=== PATIENT | female | born 1985 | race Caucasian/White ===

== ENCOUNTER → 2016-09-14 09:59 | Emergency (ER) | payer OTHER ==
[2016-09-14 10:28] VITALS: BP 117/79
--- NOTE | 2016-09-14 10:47 | UC ---
Respiratory Complaint HPI - HPI Summary HPI Summary: 2-3 DAYS OF COUGH, CONGESTION, NAUSEA, ST, BODY ACHES, ORR, LOW GRADE FEVER TMAX 100.4. HAS FATIGUE. NO FLU SHOT THIS SEASON. - History of Current Complaint Chief Complaint: UCGeneralIllness Stated Complaint: FEVER Time Seen by Provider: 09/14/16 10:31 Hx Obtained From: Patient Hx Last Menstrual Period: 09/07/16 Onset/Duration: Gradual Onset, Lasting Days, Still Present Timing: Constant Severity Initially: Moderate Severity Currently: Moderate Pain Intensity: 8 Pain Scale Used: 0-10 Numeric Character: Cough: Productive Aggravating Factors: Nothing Alleviating Factors: Nothing Associated Signs And Symptoms: Positive: Fever, Chills, URI, Nasal Congestion. Negative: Dyspnea, Wheezing, Hemoptysis, Dizziness - Allergies/Home Medications Allergies/Adverse Reactions: Allergies Allergy/AdvReac Type Severity Reaction Status Date / Time Gluten Meal Allergy GI Upset Verified 06/23/16 07:27 Iodine Allergy Swelling Verified 06/23/16 07:27 Of Face,Lips,& Throat Papaya Enzyme Allergy Swelling Verified 09/14/16 10:24 Shellfish Allergy Allergy Difficulty Verified 06/23/16 07:27 Breathing Home Medications: Home Medications Ibuprofen TAB* [Advil TAB*] 2 tab PO PRN 09/14/16 [History] PMH/Surg Hx/FS Hx/Imm Hx Endocrine History Of: Denies: Diabetes, Thyroid Disease, Hyperthyroidism, Hypothyroidism, Dyslipidemia Cardiovascular History Of: Denies: Cardiac Disorders, Hypertension, Pacemaker/ICD, Myocardial Infarction , Congestive Heart Failure, Atrial Fibrillation, Deep Vein Thrombosis, Bleeding Disorders Respiratory History Of: Reports: Asthma - As a child. Denies: COPD, Bronchitis, Pneumonia, Pulmonary Embolism GI/ History Of: Reports: Gastroesophageal Reflux - She states that this is more of a recent problem. Rx:OTC. Denies: Ulcer, Gastrointestinal Bleed, Gall Bladder Disease, Kidney Stones, Diverticulitis, Renal Disease, Urosepsis Neurological History Of: Reports: Migraine - Ocular migraines Denies: TIA, CVA, Dementia, Seizures Psychological History Of: Denies: Anxiety, Depression, Bipolar Disorder, Schizophrenia, Post Traumatic Stress Disorder Cancer History Of: Denies: Lung Cancer, Colorectal Cancer, Breast Cancer, Prostate Cancer, Cervical Cancer Other History Of: Negative For: HIV, Hepatitis B, Hepatitis C - Surgical History Surgical History: Yes Surgery Procedure, Year, and Place: laser eye surgery. wisdom teeth. R knee arthroscopy. l knee arthroscopy-2016 - Family History Known Family History: Positive: Hypertension, Diabetes, Other - severe, chronic migraines: mother Negative: Cardiac Disease - Social History Alcohol Use: Occasionally Substance Use Type: None Smoking Status (MU): Never Smoked Tobacco - Immunization History Most Recent Influenza Vaccination: season Review of Systems Constitutional: Fever, Chills, Fatigue ENT: Sore Throat, Nasal Discharge Respiratory: Cough Cardiovascular: Negative Gastrointestinal: Other - NAUSEA Musculoskeletal: Myalgia Neurological: Headache All Other Systems Reviewed And Are Negative: Yes Physical Exam Triage Information Reviewed: Yes Appearance: No Pain Distress, Well-Nourished, Ill-Appearing - APPEARS MILDLY ILL AND FATIGUED Vital Signs: Initial Vital Signs Temp 97.6 F 09/14/16 10:19 Pulse 81 09/14/16 10:19 Resp 18 09/14/16 10:19 BP 117/79 09/14/16 10:19 Pulse Ox 99 09/14/16 10:19 Vital Signs Reviewed: Yes Eyes: Positive: Conjunctiva Clear ENT: Positive: Hearing grossly normal, Pharynx normal, TMs normal. Negative: Tonsillar swelling, Tonsillar exudate Neck: Positive: Supple, Nontender, No Lymphadenopathy Respiratory Exam: Normal Cardiovascular Exam: Normal Abdomen Description: Positive: Soft Musculoskeletal: Positive: No Edema Neurological: Positive: Alert Psychological: Positive: Age Appropriate Behavior Skin: Negative: rashes UC Diagnostic Evaluation - Laboratory O2 Sat by Pulse Oximetry: 99 Diagnostic Studies Comment: RAPID FLU SWAB POSITIVE FOR FLU A Respiratory Course/Dx - Differential Dx/Diagnosis Provider Diagnoses: INFLUENZA A Discharge - Discharge Plan Condition: Stable Disposition: HOME Patient Education Materials: Influenza (ED) Forms: *Work Release Referrals: Allyn Feldman MD [Primary Care Provider] - If Needed Additional Instructions: RAPID FLU SWAB POSITIVE FOR FLU A. YOU ARE OUTSIDE THE WINDOW FOR TAKING TAMIFLU. REST, HYDRATE, OTC MEDS NEEDED FOR ACHES AND FEVER. SEEK FOLLOW-UP IF YOU ARE NOT IMPROVING EXPECTED.
== END | disposition home or self-care (01) ==
LOC: UCEAST 09:59
DX: J09.X2 Influenza due to identified novel influenza A virus with other respiratory manifestations (principal); Z88.8 Allergy status to other drugs, medicaments and biological substances
CPT/HCPCS: 87502

== ENCOUNTER 2017-05-24 16:59 | Emergency (ER) | payer OTHER ==
[2017-05-24 17:13] VITALS: BP 121/78
--- NOTE | 2017-05-24 17:15 | UC ---
Eye Complaint HPI - HPI Summary HPI Summary: 32 YEAR OLD FEMALE PRESENTS WITH LEFT EYE IRRITATION/ERYTHEMA/PURULENT DISCHARGE AND INSECT BITE ON RIGHT CALF. - History of Current Complaint Chief Complaint: UCEye Stated Complaint: EYE IRRITATION Time Seen by Provider: 05/24/17 17:14 Hx Obtained From: Patient Hx Last Menstrual Period: 05/04/17 Onset/Duration: Sudden Onset Timing: Constant - Allergies/Home Medications Allergies/Adverse Reactions: Allergies Allergy/AdvReac Type Severity Reaction Status Date / Time Gluten Meal Allergy GI Upset Verified 05/24/17 17:13 Iodine Allergy Swelling Verified 05/24/17 17:13 Of Face,Lips,& Throat Papaya Enzyme Allergy Swelling Verified 05/24/17 17:13 Shellfish Allergy Allergy Difficulty Verified 05/24/17 17:13 Breathing PMH/Surg Hx/FS Hx/Imm Hx Previously Healthy: Yes Other History Of: Negative For: HIV, Hepatitis B, Hepatitis C - Surgical History Surgical History: Yes Surgery Procedure, Year, and Place: laser eye surgery. wisdom teeth. R knee arthroscopy. l knee arthroscopy-2015 - Family History Known Family History: Positive: Hypertension, Diabetes, Other - severe, chronic migraines: mother Negative: Cardiac Disease - Social History Alcohol Use: Occasionally Substance Use Type: None Smoking Status (MU): Never Smoked Tobacco - Immunization History Most Recent Influenza Vaccination: season Review of Systems Constitutional: Negative Skin: Other - INSECT BITE RIGHT CALF Eyes: Drainage, Eye Redness, Other - LEFT EYE ENT: Negative Respiratory: Negative Cardiovascular: Negative Gastrointestinal: Negative Genitourinary: Negative Motor: Negative Neurovascular: Negative Musculoskeletal: Negative Neurological: Negative Psychological: Negative All Other Systems Reviewed And Are Negative: Yes Physical Exam Triage Information Reviewed: Yes Vital Signs: Initial Vital Signs Temp 37.1 C 05/24/17 17:09 Pulse 75 05/24/17 17:09 Resp 16 05/24/17 17:09 BP 121/78 05/24/17 17:09 Pulse Ox 100 05/24/17 17:09 Vital Signs Reviewed: Yes Eyes: Positive: Conjunctiva Inflamed, Discharge, Other: - LEFT EYE ENT Exam: Normal Dental Exam: Normal Neck exam: Normal Neck: Positive: 1 Respiratory Exam: Normal Cardiovascular Exam: Normal Abdominal Exam: Normal Musculoskeletal Exam: Normal Neurological Exam: Normal Psychological Exam: Normal Skin: Positive: Other - INSECT BITE RIGHT CALF Eye Complaint Course/Dx - Differential Dx/Diagnosis Provider Diagnoses: INSECT BITE RIGHT CALF. LEFT EYE CONJUNCTIVITIS Discharge - Discharge Plan Condition: Stable Disposition: HOME Prescriptions: Polymyx/Trimethoprim OPTH* [Polytrim OPHTH*] 1 drop LEFT EYE Q6H #1 btl Patient Education Materials: Insect Bite or Sting (ED), Tick Bite (ED), [place] Spotted Fever (ED), Conjunctivitis (ED) Referrals: Allyn Feldman MD [Primary Care Provider] -
[2017-05-24] MEDS ORDERED: DOXYcycline CAP(*) 100 MG PO ONE (17:40)
[2017-05-25 11:07] LABS: Hematocrit 40 % (35-47); Hemoglobin 13.4 g/dl (12.0-16.0); Mean Corpuscular HGB Conc 34 g/dl (31-36); Mean Corpuscular Hemoglobin 28 pg (27-31); Mean Corpuscular Volume 84 fL (80-97); Mean Platelet Volume 8 um3 (7.4-10.4); Red Blood Count 4.79 10^6/ul (4.0-5.4); Red Cell Distribution Width 14 % (10.5-15); White Blood Count 9.5 10^3/ul (3.5-10.8)
[2017-05-25 11:12] LABS: Add Diff/Slide Review? Slide Review Added; Comments Flag Yes
[2017-05-25 12:23] LABS: Albumin 4.5 g/dL (3.2-5.2); BUN/Creatinine Ratio 15.4 (8-20); Calcium 9.5 mg/dL (8.6-10.3); EGFR African American 137.6 (>60); Potassium 4.2 mmol/L (3.5-5.0); Total Bilirubin 0.2 mg/dL (0.2-1.0); Total Protein 7.5 g/dL (6.4-8.9)
--- NOTE | 2017-05-25 16:34 | UC ---
Progress - Progress Note Progress Note: CALL PATIENT CMP/CBC NO ACUTE CHANGES. LYME PENDING.
--- NOTE | 2017-05-27 11:05 | UC ---
Progress - Progress Note Progress Note: CALL PATIENT CMP/CBC NO ACUTE CHANGES. LYME PENDING. Lyme is negative. please notify pt.
== END 2017-05-24 18:03 | disposition home or self-care (01) ==
LOC: UCEAST 16:59
DX: H10.32 Unspecified acute conjunctivitis, left eye (principal); S80.861A Insect bite (nonvenomous), right lower leg, initial encounter; W57.XXXA Bitten or stung by nonvenomous insect and other nonvenomous arthropods, initial encounter; Y93.9 Activity, unspecified; Y92.9 Unspecified place or not applicable
CPT/HCPCS: 36415; 80053; 85025; 86618; 99213; A9270-GY; G0463